=== PATIENT | female | born 1955 | race Caucasian/White ===

== ENCOUNTER 2018-08-12 15:19 | Emergency (ER) | payer OTHER ==
[~2018-08-12] VITALS: Ht 167.6 cm; Wt 65.8 kg
[~2018-08-12 15:19] MED LIST: CALCIUM 600 +1 EAC1 PO; CENTRUM SILVER1 EAC4 PO; LAMICTAL100 MG PO; NITROGLYCERIN0.4 MG SUBLING; ST. JOSEPH ASPI81 MG PO; SYNTHROID50 MCG PO; VITAMIN D35000 UNIT PO
[2018-08-12 15:22] VITALS: BP 141/63
[2018-08-12] MEDS ORDERED: CRESTOR5 MG PO (15:26)
== END 2018-08-12 16:40 | disposition home or self-care (01) ==
LOC: ER 15:19
DX: S51.812A Laceration without foreign body of left forearm, initial encounter (principal); G40.909 Epilepsy, unspecified, not intractable, without status epilepticus; E03.9 Hypothyroidism, unspecified; Z88.8 Allergy status to other drugs, medicaments and biological substances; W45.8XXA Other foreign body or object entering through skin, initial encounter; Y93.89 Activity, other specified; Y92.009 Unspecified place in unspecified non-institutional (private) residence as the place of occurrence of the external cause; Y99.8 Other external cause status

== ENCOUNTER → 2019-09-02 | Outpatient (CLI) | payer BC, OTHER ==
[~2019-09-02] MED LIST changes: +CRESTOR5 MG PO
== END ==
LOC: RAD 09:19
DX: R05 Cough (principal); R06.02 Shortness of breath; I70.0 Atherosclerosis of aorta